=== PATIENT | female | born 1995 | race Caucasian/White ===

== ENCOUNTER 2017-11-03 04:59 | Inpatient (IN) ==
[2017-11-05 08:32] VITALS: BP 113/64
== END 2017-11-05 11:05 | disposition home or self-care (01) | DRG 766 ==
LOC: N.LDOUT 04:59 → N.LD 05:02 → N.OB 11:41
PROVIDERS: ADMIT Obstetrics & Gynecology; ATTEND Obstetrics & Gynecology
PROC: LDCSECT (ICD-10-PCS; 2017-11-03 06:50)